=== PATIENT | male | born 1960 | race Two or more races ===

== ENCOUNTER 2018-02-23 10:49 | Emergency (ER) | payer OTHER ==
[~2018-02-23] VITALS: Ht 165.1 cm; Wt 91.0 kg
[2018-02-23] MEDS ORDERED: KETOROLAC 30 MG/1 ML IM ONE (11:00)
[2018-02-23] MEDS ORDERED: KETOROLAC 30 MG/1 ML ONE (11:04)
[2018-02-23 11:57] VITALS: BP 132/81
== END 2018-02-23 12:10 | disposition home or self-care (01) ==
LOC: ED 10:58
DX: R60.0 Localized edema (principal)
CPT/HCPCS: 93971; 96372; 99284; J1885